=== PATIENT | male | born 1955 | race Caucasian/White ===

== ENCOUNTER → 2019-08-10 12:53 | Outpatient (CLI) | payer OTHER, SELFPAY ==
--- NOTE | 2019-08-10 13:10 | ECHOCS_ITS ---
Reason For Study: TIA Procedure This was a 2D Doppler, Color Flow transthoracic echocardiogram. The study was technically limited. Contrast injection was performed. Exam performed in department. Left Ventricle Normal LV size. Left ventricular systolic function is normal. The estimated ejection fraction is 60 %. No regional wall motion abnormalities noted. Right Ventricle Normal RV size. Normal systolic function. Atria Normal left atrium. Normal right atrium. Mitral Valve Normal mitral valve. Mild (1+) eccentric mitral valve insufficiency. Tricuspid Valve Normal tricuspid valve. Aortic Valve Normal aortic valve. Pulmonic Valve Normal pulmonic valve. Great Vessels Normal aortic root. The pulmonary artery is normal size. Normal inferior vena cava. Pericardium/Pleural No pericardial effusion. Medication 22 gauge I.V. with prn adaptor inserted into right arm. Diluted definity 4.0ml given slow IV push to enhance endocardial definition. Performed a rapid injection of agitated mix of 9 cc saline and 1cc air to assess for atrial septal defect. MMode/2D Measurements & Calculations LVIDd: 5.6 cm IVSd: 0.77 cm Ao root diam: 3.3 cm LVIDs: 3.6 cm LVPWd: 0.96 cm RVDd: 4.2 cm FS: 36.1 % LAV(MOD-bp): 53.0 ml LVAd ap4: 34.8 cm2 SV(MOD-sp4): 67.5 ml LAV(MOD-bp) Indexed: 24.6 ml/m2 EDV(MOD-sp4): 113.4 ml LAV(MOD-sp2): 43.2 ml EDV(sp4-el): 119.8 ml LAV(MOD-sp4): 63.8 ml LVAs ap4: 19.2 cm2 ESV(MOD-sp4): 45.9 ml ESV(sp4-el): 47.1 ml EF(MOD-sp4): 59.5 % EF(sp4-el): 60.7 % SV(sp4-el): 72.7 ml LA A4 area: 21.2 cm2 LA dimension(2D): 3.1 cm RA A4 area: 14.5 cm2 Time Measurements MV dec time: 0.27 sec Doppler Measurements & Calculations MV E max amado: 49.6 cm/sec Lat Peak E' Amado: 5.4 cm/sec Med Peak E' Amado: 4.3 cm/sec MV A max amado: 71.2 cm/sec E/E' lat: 9.3 E/E' med: 11.5 MV E/A: 0.70 Ao V2 max: 116.2 cm/sec LV V1 max: 105.9 cm/sec PA V2 max: 94.2 cm/sec Ao max P.4 mmHg LV V1 max P.5 mmHg PI end-d amado: 103.2 cm/sec TR max amado: 206.2 cm/sec TR max P.0 mmHg Interpretation Summary The estimated ejection fraction is 60 %. Left ventricular systolic function is normal. Normal LV size. Mild (1+) eccentric mitral valve insufficiency. Contrast injection was performed. Ordering Physician: Alondra Biggs Referring Physician: CAESAR BUCKNER Performed By: Allison Hernandes, DONTE, RVT
== END ==
PROVIDERS: Family Provider Family Medicine; PCP Family Medicine; Referring Provider Nurse Practitioner Family; Visit Provider Nurse Practitioner Family
DX: Z86.73 Personal history of transient ischemic attack (TIA), and cerebral infarction without residual deficits (principal)
CPT/HCPCS: 93306; Q9957; A4216; C8929